=== PATIENT | female | born 1995 | race Caucasian/White ===

== ENCOUNTER 2018-11-15 16:46 | Outpatient (CLI) | payer OTHER | END 2018-11-15 18:20 | disposition home or self-care (01) | LOC: OBT 16:46 → L-D 16:50 → OBT 18:20 | DX: O36.5930 Maternal care for other known or suspected poor fetal growth, third trimester, not applicable or unspecified (principal); Z3A.33 33 weeks gestation of pregnancy | CPT/HCPCS: 76815; 76818 ==

== ENCOUNTER 2018-11-19 16:31 | Outpatient (CLI) | payer OTHER | END 2018-11-19 19:25 | disposition home or self-care (01) | LOC: OBT 16:31 → L-D 16:31 → OBT 19:25 | DX: O36.5930 Maternal care for other known or suspected poor fetal growth, third trimester, not applicable or unspecified (principal); Z3A.33 33 weeks gestation of pregnancy | CPT/HCPCS: 76818 ==

== ENCOUNTER 2018-11-22 17:02 | Outpatient (CLI) | payer OTHER | END 2018-11-22 18:53 | disposition home or self-care (01) | LOC: OBT 17:02 → L-D 17:02 → OBT 18:53 | DX: O36.5930 Maternal care for other known or suspected poor fetal growth, third trimester, not applicable or unspecified (principal); Z3A.34 34 weeks gestation of pregnancy | CPT/HCPCS: 76818 ==

== ENCOUNTER 2018-11-26 14:50 | Outpatient (CLI) | payer OTHER | END 2018-11-26 16:55 | disposition home or self-care (01) | LOC: OBT 14:50 → L-D 14:52 → OBT 16:55 | DX: O60.03 Preterm labor without delivery, third trimester (principal); Z3A.34 34 weeks gestation of pregnancy | CPT/HCPCS: 76818 ==

== ENCOUNTER 2018-12-11 12:50 | Outpatient (CLI) | payer OTHER | END 2018-12-11 16:33 | disposition home or self-care (01) | LOC: OBT 12:50 → L-D 12:52 → OBT 16:33 | DX: O36.5930 Maternal care for other known or suspected poor fetal growth, third trimester, not applicable or unspecified (principal); Z3A.36 36 weeks gestation of pregnancy | CPT/HCPCS: 76815; 76818; 76820 ==

== ENCOUNTER 2018-12-14 09:05 | Outpatient (CLI) | payer OTHER | END 2018-12-14 11:46 | disposition home or self-care (01) | LOC: OBT 09:05 → L-D 09:05 → OBT 11:46 | DX: O62.9 Abnormality of forces of labor, unspecified (principal); Z3A.37 37 weeks gestation of pregnancy | CPT/HCPCS: 76818 ==

== ENCOUNTER 2018-12-17 12:04 | Outpatient (CLI) | payer OTHER | END 2018-12-17 15:40 | disposition home or self-care (01) | LOC: OBT 12:04 → L-D 12:05 → OBT 15:40 | DX: O36.5930 Maternal care for other known or suspected poor fetal growth, third trimester, not applicable or unspecified (principal); Z3A.37 37 weeks gestation of pregnancy | CPT/HCPCS: 76818 ==

== ENCOUNTER 2018-12-21 09:08 | Inpatient (IN) | payer OTHER ==
[2018-12-21] MEDS: LACTATED RINGER'S 1,000 ML IV (17:46)
[2018-12-21] MEDS ORDERED: MISOPROSTOL 200 MCG TAB PR (18:00)
[2018-12-21] MEDS ORDERED: OXYTOCIN 30 UNITS/LR 500 ML IV (18:00)
[2018-12-21] MEDS ORDERED: CARBOPROST 250 MCG INJ IM (18:00)
[2018-12-21] MEDS ORDERED: METHYLERGONOVINE 0.2 MG INJ IM (18:00)
[2018-12-21 19:45] LABS: ADD MAN DIFF? NO
[2018-12-21 19:47] LABS: BASOPHILS % 0.5 % (0.0-2.0); EOSINOPHILS # 0.1 10^3/ul (0.0-0.5); EOSINOPHILS % 0.8 % (0.0-7.0); HEMOGLOBIN 9.8 g/dl (12.0-16.0); LYMPHOCYTES # 1.4 10^3/ul (0.8-2.9); LYMPHOCYTES % 19.4 % (15.0-51.0); MEAN CORPUSCULAR HEMOGLOBIN 24.9 pg (29.0-33.0); MEAN CORPUSCULAR HGB CONC 30.6 g/dl (32.0-37.0); MEAN CORPUSCULAR VOLUME 81.4 fl (82.0-101.0); MEAN PLATELET VOLUME 11.4 fl (7.4-10.4); MONOCYTE # 0.3 10^3/ul (0.3-0.9); MONOCYTES % 4.6 % (0.0-11.0); NEUTROPHIL # 5.5 10^3/ul (1.6-7.5); NEUTROPHILS % 74.2 % (39.0-77.0); PLATELET COUNT 219 10^3/UL (140-415); RED BLOOD COUNT 3.93 10^6/ul (4.20-5.40)
[2018-12-21 19:47] LABS: WHITE BLOOD COUNT 7.4 10^3/ul (4.8-10.8)
[2018-12-21 20:06] LABS: INR 0.91; PROTIME 12.4 Sec (11.9-14.9)
[2018-12-21 20:07] LABS: PARTIAL THROMBOPLASTIN TIME 26.7 Sec (23.0-35.0)
[2018-12-22] MEDS ORDERED: CEFAZOLIN 2 GM/50 ML (PMX) 50 ML IVPB ×2 (09:23→09:30)
[2018-12-22] MEDS: ONDANSETRON 4 MG INJ IV (10:14)
[2018-12-22] MEDS: CITRIC ACID/NA CITRATE 30 ML CUP PO (10:14)
[2018-12-22] MEDS: LACTATED RINGER'S 1,000 ML IV ×3 (10:15→22:10)
[2018-12-22] MEDS ORDERED: PHENYLephrine (100 MCG/ML) 10ML SYG (11:15)
[2018-12-22] MEDS ORDERED: morphine SULFATE/PF (10 MG/10 ML) INJ (11:15)
[2018-12-22] MEDS ORDERED: METOCLOPRAMIDE 10 MG INJ (11:15)
[2018-12-22] MEDS ORDERED: DEXAMETHASONE 4 MG/ML 1 ML INJ (11:15)
[2018-12-22] MEDS ORDERED: OXYTOCIN 30 UNITS/LR 500 ML BAG IV (11:15)
[2018-12-22] MEDS ORDERED: KETOROLAC 30 MG INJ (11:16)
[2018-12-22] MEDS ORDERED: OXYTOCIN 10 UNIT INJ (11:16)
[2018-12-22] MEDS ORDERED: AZITHROMYCIN 500MG/NS (PMX) 250 ML IVPB (12:30)
[2018-12-22] MEDS ORDERED: morphine 2 MG INJ IV ×2 (14:30)
[2018-12-22] MEDS ORDERED: HYDROmorphONE 0.5 MG/0.5 ML SYG IV ×2 (14:30)
[2018-12-22] MEDS ORDERED: DIPHENHYDRAMINE 50 MG INJ IV (14:30)
[2018-12-22] MEDS ORDERED: NALBUPHINE HCL (10 MG/1 ML) INJ IV (14:30)
[2018-12-22] MEDS ORDERED: ONDANSETRON 4 MG INJ IV (14:30)
[2018-12-22] MEDS ORDERED: NALOXONE (0.4 MG/ML) INJ IV (14:30)
[2018-12-22 14:56] LABS: RAPID PLASMA REAGIN NONREACTIVE (NR)
[2018-12-22] MEDS: OXYTOCIN 30 UNITS/LR 500 ML IV (16:07)
[2018-12-22] MEDS ORDERED: OXYTOCIN 30 UNITS/LR 500 ML IV (16:30)
[2018-12-22] MEDS ORDERED: HYDROCODONE/APAP (5/325) TAB PO (16:30)
[2018-12-22] MEDS ORDERED: LANOLIN HPA 1 PKT TOP (16:30)
[2018-12-22] MEDS ORDERED: MISOPROSTOL 200 MCG TAB PR (16:30)
[2018-12-22] MEDS ORDERED: METHYLERGONOVINE 0.2 MG INJ IM (16:30)
[2018-12-22] MEDS ORDERED: OXYCODONE/ACETAMINOPHEN (5/325) TAB PO (16:30)
[2018-12-22] MEDS ORDERED: NA PHOSPHATE/BIPHOS 133 ML ENEMA PR (16:30)
[2018-12-22] MEDS ORDERED: CARBOPROST 250 MCG INJ IM (16:30)
[2018-12-22] MEDS: KETOROLAC 30 MG INJ IV ×2 (16:59→20:23)
[2018-12-22] MEDS: ACETAMINOPHEN 500 MG TAB PO (16:59)
[2018-12-22] MEDS: CLINDAMYCIN 300 MG CAP PO (18:25)
[2018-12-22] MEDS: AZITHROMYCIN 500MG/NS (PMX) 250 ML IVPB (18:25)
[2018-12-22] MEDS: CEFAZOLIN 2 GM/50 ML (PMX) 50 ML IVPB (20:23)
[2018-12-22] MEDS: SENNA/DOCUSATE NA (8.6MG/50MG) TAB PO (21:00)
[2018-12-22] MEDS: IBUPROFEN 800 MG TAB PO (22:00)
[2018-12-23] MEDS: CLINDAMYCIN 300 MG CAP PO ×4 (00:58→18:09)
[2018-12-23] MEDS: KETOROLAC 30 MG INJ IV (04:01)
[2018-12-23] MEDS: CEFAZOLIN 2 GM/50 ML (PMX) 50 ML IVPB ×2 (04:01→11:58)
[2018-12-23] MEDS: IBUPROFEN 800 MG TAB PO ×3 (06:00→22:04)
[2018-12-23] MEDS: LACTATED RINGER'S 1,000 ML IV (06:39)
[2018-12-23] MEDS: SENNA/DOCUSATE NA (8.6MG/50MG) TAB PO ×2 (08:24→21:01)
[2018-12-23 08:25] LABS: ADD MAN DIFF? NO
[2018-12-23 08:29] LABS: WHITE BLOOD COUNT 9.9 10^3/ul (4.8-10.8)
[2018-12-23 08:29] LABS: BASOPHILS % 0.3 % (0.0-2.0); EOSINOPHILS % 0.3 % (0.0-7.0); HEMATOCRIT 27.3 % (37.0-47.0); HEMOGLOBIN 8.1 g/dl (12.0-16.0); LYMPHOCYTES # 1.5 10^3/ul (0.8-2.9); LYMPHOCYTES % 15.1 % (15.0-51.0); MEAN CORPUSCULAR HEMOGLOBIN 24.4 pg (29.0-33.0); MEAN CORPUSCULAR HGB CONC 29.7 g/dl (32.0-37.0); MEAN CORPUSCULAR VOLUME 82.2 fl (82.0-101.0); MEAN PLATELET VOLUME 11.8 fl (7.4-10.4); MONOCYTE # 0.9 10^3/ul (0.3-0.9); MONOCYTES % 9.2 % (0.0-11.0); NEUTROPHIL # 7.4 10^3/ul (1.6-7.5); NEUTROPHILS % 74.7 % (39.0-77.0); PLATELET COUNT 191 10^3/UL (140-415); RED BLOOD COUNT 3.32 10^6/ul (4.20-5.40); RED CELL DISTRIBUTION WIDTH 15.9 % (11.5-14.5)
[2018-12-24] MEDS: CLINDAMYCIN 300 MG CAP PO ×4 (00:02→17:44)
[2018-12-24] MEDS: IBUPROFEN 800 MG TAB PO ×3 (05:39→21:36)
[2018-12-24 10:03] LABS: HEPATITIS B SURFACE ANTIGEN NEGATIVE (NEGATIVE)
[2018-12-24] MEDS: SENNA/DOCUSATE NA (8.6MG/50MG) TAB PO ×2 (10:10→21:36)
[2018-12-24] MEDS: HYDROCODONE/APAP (5/325) TAB PO (10:16)
[2018-12-24] MEDS: BISACODYL 10 MG SUPP PR ×2 (11:30→14:35)
[2018-12-24] MEDS ORDERED: ACETAMINOPHEN 325 MG TAB PO (15:30)
[2018-12-25] MEDS: CLINDAMYCIN 300 MG CAP PO ×3 (05:51→11:09)
[2018-12-25] MEDS: IBUPROFEN 800 MG TAB PO (05:51)
[2018-12-25] MEDS: DIPHTH/TET/ACEL PERTUSS (ADULT) 0.5 ML VIAL IM* (09:00)
[2018-12-25] MEDS: SENNA/DOCUSATE NA (8.6MG/50MG) TAB PO (09:00)
[2018-12-25] MEDS: MEASLES,MUMPS,RUBELLA VACCINE INJ SC* (09:00)
[2018-12-25] MEDS: ACETAMINOPHEN 500 MG TAB PO (11:09)
== END 2018-12-25 13:51 | disposition home or self-care (01) | DRG 788 ==
LOC: OBT 09:08 → L-D 12-22 10:31 → PP1 12-22 15:15 → OBT 17:40 → L-D 17:40
PROVIDERS: Obstetrics & Gynecology
PROC: 10D00Z1 Extraction of Products of Conception, Low, Open Approach (ICD-10-PCS; principal; 2018-12-21)
DX: O36.5930 Maternal care for other known or suspected poor fetal growth, third trimester, not applicable or unspecified (principal); O34.211 Maternal care for low transverse scar from previous cesarean delivery; Z3A.49 Greater than 42 weeks gestation of pregnancy; Z3A.38 38 weeks gestation of pregnancy; Z37.0 Single live birth
CPT/HCPCS: 76815; 76818; 76820; 85025; 85610; 85730; 86592; 86850; 86900; 86901; 87340; 99464